=== PATIENT | female | born 1960 | race Two or more races ===

== ENCOUNTER 2021-03-07 05:28 | Day surgery (SDC) | payer OTHER ==
[~2021-03-07 05:28] MED LIST: CLONAZEPAM2 M1 PO; GABAPENTIN400 MG PO; TRAZODONE HCL100 MG PO; WELLBUTRIN XL300 MG PO; XANAX2 MG PO
== END 2021-03-07 18:00 | disposition home or self-care (01) ==
LOC: CIR.AMB 05:28
PROVIDERS: ATTEND Orthopaedic Surgery Hand Surgery
DX: S52.531A Colles' fracture of right radius, initial encounter for closed fracture (principal); Z20.822 Contact with and (suspected) exposure to COVID-19
CPT/HCPCS: 25609; C1776; 25118; 25280